=== PATIENT | male | born 1985 | race Caucasian/White ===

== ENCOUNTER 2019-01-20 13:25 | Emergency (ER) | payer OTHER ==
[~2019-01-20] VITALS: Ht 170.2 cm; Wt 79.4 kg
[2019-01-20 13:37] VITALS: BP 120/71
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
--- NOTE | 2019-01-20 13:50 | NUR ---
DR SMITH AT BEDSIDE
[2019-01-20] MEDS ORDERED: KETOROLAC 60 MG/2 ML VIAL IM ONE (13:55)
[2019-01-20] MEDS ORDERED: HYDROcodone/APAP 5/325 MG 1 TAB TAB PO ONE (13:55)
--- NOTE | 2019-01-20 14:03 | NUR ---
PT ON WHEELCHAIR TO XRAY.
--- NOTE | 2019-01-20 14:32 | NUR ---
PT BACK FROM XRAY VIA WHEELCHAIR
--- NOTE | 2019-01-20 14:35 | NUR ---
PT REFUSE TORADOL IM OPTED FOR PO MEDS.
--- NOTE | 2019-01-20 15:05 | NUR ---
NADR PAIN AT 09/21.STILL REFUSING TORADOL IM.
[2019-01-20 15:59] VITALS: BP 125/70
--- NOTE | 2019-01-20 15:59 | NUR ---
Patient discharged with v/s stable. Written and verbal after care instructions given and explained regarding back pain. Patient alert, oriented and verbalized understanding of instructions. Ambulatory with steady gait. All questions addressed prior to discharge. ID band removed. Patient advised to follow up with PMD. Rx of norco and naprosyn given.patient instructed not to drive after taking norco. Patient educated on indication of medication including possible reaction and side effects. Opportunity to ask questions provided and answered.patient given excuse for work thru 01/22/19.blossom jaquez translate to kazakh.
== END 2019-01-20 15:59 | disposition home or self-care (01) ==
LOC: MED 13:25 → EDBD 13:25 → MED 15:59
DX: S30.0XXA Contusion of lower back and pelvis, initial encounter (principal); F17.200 Nicotine dependence, unspecified, uncomplicated; Z71.6 Tobacco abuse counseling; W20.8XXA Other cause of strike by thrown, projected or falling object, initial encounter; Y93.89 Activity, other specified; Y92.89 Other specified places as the place of occurrence of the external cause; Y99.8 Other external cause status
CPT/HCPCS: 71101; 72072; 99283; J1885